=== PATIENT | female | born 1940 | race Caucasian/White ===

== ENCOUNTER 2019-01-10 22:46 | Emergency (ER) | payer MEDICARE ==
[~2019-01-10 22:46] MED LIST: ISOVUE-370 76%-LOCM 1 ML ONE
[2019-01-10 23:23] LABS: #Eosinphils 0.1 thou/uL (0.0-0.7); #Lymphocytes 1.5 thou/uL (1.20-3.40); #Monocytes 0.9 thou/uL (0.11-0.59); #Neutrophils 11.1 thou/uL (1.40-6.50); %Basophils 0.1 % (0.0-1.0); %Eosinophils 0.7 % (0.0-10.0); %Lymphocytes 11.2 % (21.0-51.0); %Monocytes 6.8 % (0.0-10.0); %Neutrophils 81.1 % (42.0-75.0); Hemoglobin 12.8 g/dL (12.0-16.0); Mean Corpuscular HGB CONC 34.3 g/dL (32.0-36.0); Mean Corpuscular Hemoglobin 30.9 pg (27.0-31.0); Mean Corpuscular Volume 90.2 fL (78.0-98.0); Mean Platelet Volume 7.7 fL (7.4-10.4); Platelet Count 286 thou/uL (130-400); RBC Distribution Width 11.6 % (11.5-14.5); Red Blood Cell (RBC) Count 4.14 mill/uL (4.20-5.40); White Blood Cell (WBC) Count 13.7 thou/uL (4.8-10.8)
[2019-01-10 23:44] LABS: ALT (SGPT) 30 U/L (8-55); AST (SGOT) 43 U/L (5-34); Albumin 4.3 g/dL (3.4-4.8); Alkaline Phosphatase 50 U/L (40-110); Anion Gap 14 mmol/L (10-20); BUN (Urea Nitrogen) 18 mg/dL (9.8-20.1); Bilirubin, Total 0.4 mg/dL (0.2-1.2); Calc. Creatinine Clearance 0 mL/min (70-130); Calcium 9.9 mg/dL (7.8-10.44); Carbon Dioxide 23 mmol/L (23-31); Chloride 105 mmol/L (98-107); Estimated GFR-MDRD 59; Globulin 3.2 g/dL (2.4-3.5); Glucose 113 mg/dL (83-110); Magnesium 1.7 mg/dL (1.6-2.6); Potassium 3.3 mmol/L (3.5-5.1); Protein, Total 7.5 g/dL (6.0-8.3); Sodium 139 mmol/L (136-145)
--- NOTE | 2019-01-11 07:39 | CT ---
PRELIMINARY REPORT/[facility]/EMERGENCY AFTER HOURS PROCEDURE: PROCEDURE INFORMATION: Exam: CT Abdomen And Pelvis With Contrast Exam date and time: 01/10/2019 11:57 PM Clinical history: 78 years old, female; Abdominal pain; Patient HX: Er 6. F78 with presented to the [facility] with a C/O diarrhea onset x4 days. PT reports chills. PT reports there is a little discomfort right now TECHNIQUE: Imaging protocol: Computed tomography of the abdomen and pelvis with intravenous contrast. COMPARISON: No relevant prior studies available. FINDINGS: Liver: Hepatic steatosis is noted. Gallbladder and bile ducts: Normal. No calcified stones. No ductal dilation. Pancreas: There is fatty atrophy of the pancreas. Spleen: Normal. No splenomegaly. Adrenals: Normal. No mass. Kidneys and ureters: Normal. No hydronephrosis. Stomach and bowel: There is diffuse diverticulosis without evidence of acute diverticulitis. No evidence of bowel traction. Appendix: No evidence of appendicitis. Intraperitoneal space: Unremarkable. No free air. No significant fluid collection. Vasculature: Unremarkable. No abdominal aortic aneurysm. Lymph nodes: Unremarkable. No enlarged lymph nodes. Bladder: Unremarkable as visualized. Reproductive: Unremarkable as visualized. Bones/joints: A scoliotic curvature is noted in the lumbar spine with superimposed degenerative disc disease and facet arthropathy causing bilateral neural foraminal narrowing and spinal canal stenosis. Soft tissues: Unremarkable. IMPRESSION: 1. Hepatic steatosis. No other evidence of acute abdominal pathology. 2. Lumbar spine degenerative changes. Thank you for allowing us to participate in the care of your patient. Dictated and Authenticated by: Mdaeleine Denis MD 01/11/2019 12:17 AM Central Time ([place] & [place]) FINAL REPORT CT ABDOMEN AND PELVIS WITH CONTRAST: History: Diarrhea. Comparison: None.. Findings: The findings and impression are concordant with the preliminary report. Impression: Aside from the mentioned findings in the preliminary report, there is mild hyperenhancement of the il eum with engorgement of the vasa recta ischemic seen with ileitis. Transcribed Date/Time: 01/11/2019 7:43 AM
== END 2019-01-11 00:55 | disposition home or self-care (01) ==
LOC: ERS 22:46
DX: R19.7 Diarrhea, unspecified (principal); E11.9 Type 2 diabetes mellitus without complications; E78.5 Hyperlipidemia, unspecified; E78.00 Pure hypercholesterolemia, unspecified; Z79.899 Other long term (current) drug therapy; Z79.4 Long term (current) use of insulin
CPT/HCPCS: 36415; 74177; 80053; 83735; 85025; 96360; Q9966

== ENCOUNTER 2019-11-06 10:30 | Outpatient (CLI) | payer MEDICARE ==
--- NOTE | 2019-11-06 11:54 | CT ---
CT ABDOMEN AND PELVIS WITH AND WITHOUT IV CONTRAST 11/06/2019 CLINICAL INFORMATION: Calculus of kidney. Hematuria. Constant UTI for months. COMPARISON: 01/10/2019 Technique: Multiple contiguous axial CT images are obtained through the abdomen and pelvis with and without IV c ontrast. Coronal reformatted images are provided. FINDINGS: Lower Chest: A stable 4 mm pulmonary nodule is seen in the lateral aspect left lower lobe. Visualized lung bases are otherwise clear. Vascular calcifications are seen in the coronary arteries and involving the thoracic aorta. Vessels: Vascular calcifications are present involving the abdominal aorta and iliac arteries. Abdomen: Portal vein:Patent Gallbladder: Within normal limits for CT imaging. Liver: Diminished attenuation suggesting diffuse fatty infiltration. Spleen: within normal limits. Pancreas: Atrophic. Adrenals: within normal limits. Kidneys: No renal or ureteral calculi are seen bilaterally. No enhancing renal mass is present. There is no hydronephrosis. Bowel: Evidence of colonic diverticulosis. Loops of small bowel are normal in caliber. Appendix: The appendix is visualized and normal in caliber. Peritoneum: No ascites or free air; no fluid collection. Mesentery and Retroperitoneum: No enlarged mesenteric or retroperitoneal lymph nodes. Abdominal Wall: Small fat-containing umbilical hernia. Pelvis: Reproductive Organs: There is a rounded hypodense lesion seen in the posterior aspect fundus of the u terus measuring 2.7 cm probably representing a uterine fibroid. This was present on prior exam in 2019 but less well appreciated. Bladder: Incompletely distended but otherwise demonstrates a normal CT appearance. Bones: Left convex scoliosis thoracolumbar spine with degenerative changes seen in the spine. Grade 1 anterolisthesis of L4 on L5 is present with slight retrolisthesis of L3 on L4. Bilateral hip osteoarthritis is present. IMPRESSION: 1. No renal or ureteral calculi are seen bilaterally, and there is no hydronephrosis. No enhancing re nal mass is seen. 2. Colonic diverticulosis. 3. Fatty infiltration of the liver. 4. Hypodense mass uterine fundus probably related to uterine fibroid. 5. Degenerative changes in the spine with evidence of scoliosis. Grade 1 anterolisthesis of L4 on L5 is present. 6. Stable subcentimeter too small to characterize pulmonary nodule left lower lobe. 7. CT abdomen and pelvis is stable compared to study in 2019.
[2019-11-06] MEDS ORDERED: Iopamidol-370 76% 500 ML 1 ML ONE (13:47)
== END 2019-11-06 10:31 | disposition home or self-care (01) ==
LOC: BICCT 10:30
PROVIDERS: ATTEND Urology
DX: N20.0 Calculus of kidney (principal); R31.29 Other microscopic hematuria; K76.0 Fatty (change of) liver, not elsewhere classified; K57.30 Diverticulosis of large intestine without perforation or abscess without bleeding; N85.9 Noninflammatory disorder of uterus, unspecified; M43.16 Spondylolisthesis, lumbar region; M41.9 Scoliosis, unspecified; R91.1 Solitary pulmonary nodule; M47.815 Spondylosis without myelopathy or radiculopathy, thoracolumbar region; Z87.440 Personal history of urinary (tract) infections
CPT/HCPCS: 74178; 82565; Q9967

== ENCOUNTER 2020-07-01 08:41 | Emergency (ER) | payer MEDICARE, OTHER ==
[2020-07-01 09:27] LABS: #Eosinphils 0.1 thou/uL (0.0-0.7); #Lymphocytes 1.6 thou/uL (1.20-3.40); #Monocytes 0.9 thou/uL (0.11-0.59); #Neutrophils 6.1 thou/uL (1.40-6.50); %Basophils 0.1 % (0.0-1.0); %Eosinophils 1.5 % (0.0-10.0); %Lymphocytes 18.5 % (21.0-51.0); %Neutrophils 69.9 % (42.0-75.0); Hemoglobin 13.1 g/dL (12.0-16.0); Mean Corpuscular HGB CONC 33.3 g/dL (32.0-36.0); Mean Corpuscular Hemoglobin 30.3 pg (27.0-31.0); Mean Platelet Volume 8.3 fL (7.4-10.4); Platelet Count 264 thou/uL (130-400); RBC Distribution Width 11.9 % (11.5-14.5); Red Blood Cell (RBC) Count 4.33 mill/uL (4.20-5.40); White Blood Cell (WBC) Count 8.8 thou/uL (4.8-10.8)
[2020-07-01 09:50] LABS: ALT (SGPT) 22 U/L (8-55); AST (SGOT) 21 U/L (5-34); Albumin 3.8 g/dL (3.4-4.8); Alkaline Phosphatase 67 U/L (40-110); Anion Gap 15 mmol/L (10-20); BUN (Urea Nitrogen) 14 mg/dL (9.8-20.1); Bilirubin, Total 0.5 mg/dL (0.2-1.2); Calc. Creatinine Clearance 0 mL/min (70-130); Calcium 10.3 mg/dL (7.8-10.44); Carbon Dioxide 22 mmol/L (23-31); Chloride 104 mmol/L (98-107); Globulin 3.2 g/dL (2.4-3.5); Glucose 121 mg/dL (83-110); Potassium 3.5 mmol/L (3.5-5.1); Sodium 137 mmol/L (136-145)
[2020-07-01 09:57] LABS: Bacteria/HPF 4+ HPF (None Seen); Bilirubin Negative (Negative); Blood, Urine Negative (Negative); Clarity Turbid (Clear); Glucose, Urine (Dipstick) Normal (Negative); Ketone, Urine Negative (Negative); Leukocyte 500 Leu/uL (Negative); Nitrite Negative (Negative); Protein, Urine (Dipstick) Negative (Neg-Trace); Specific Gravity, Urine 1.004 (1.002-1.036); Squamous Epithelial 0-3 HPF (0-3); Urobilinogen Normal mg/dL (Less than 2); WBC/HPF Greater than 50 HPF (0-3); Yeast-Budding 2+ HPF (None Seen)
[2020-07-01] MEDS ORDERED: Meclizine HCl 25 MG TAB ONE (10:16)
== END 2020-07-01 11:29 | disposition home or self-care (01) ==
LOC: ERS 08:41
DX: N39.0 Urinary tract infection, site not specified (principal); R42 Dizziness and giddiness; E11.9 Type 2 diabetes mellitus without complications; E78.5 Hyperlipidemia, unspecified; E78.00 Pure hypercholesterolemia, unspecified; Z79.4 Long term (current) use of insulin; Z79.899 Other long term (current) drug therapy; R29.700 NIHSS score 0
CPT/HCPCS: 36415; 36416; 70450; 70496; 70498; 80053; 81003; 81015; 84484; 85025; 93005

== ENCOUNTER 2020-09-12 18:26 | Emergency (ER) | payer MEDICARE, OTHER ==
[2020-09-12 19:35] LABS: #Eosinphils 0.1 thou/uL (0.0-0.7); #Lymphocytes 1.8 thou/uL (1.20-3.40); #Monocytes 0.7 thou/uL (0.11-0.59); #Neutrophils 6.7 thou/uL (1.40-6.50); %Basophils 0.3 % (0.0-1.0); %Eosinophils 1.2 % (0.0-10.0); %Lymphocytes 19.6 % (21.0-51.0); %Monocytes 7.8 % (0.0-10.0); %Neutrophils 71.1 % (42.0-75.0); Hemoglobin 13.7 g/dL (12.0-16.0); Mean Corpuscular HGB CONC 32.4 g/dL (32.0-36.0); Mean Corpuscular Hemoglobin 29.9 pg (27.0-31.0); Mean Corpuscular Volume 92.4 fL (78.0-98.0); Mean Platelet Volume 8.5 fL (7.4-10.4); Platelet Count 241 thou/uL (130-400); Red Blood Cell (RBC) Count 4.57 mill/uL (4.20-5.40); White Blood Cell (WBC) Count 9.4 thou/uL (4.8-10.8)
[2020-09-12 20:03] LABS: ALT (SGPT) 21 U/L (8-55); AST (SGOT) 21 U/L (5-34); Albumin 4.1 g/dL (3.4-4.8); Alkaline Phosphatase 82 U/L (40-110); Anion Gap 12 mmol/L (10-20); BUN (Urea Nitrogen) 19 mg/dL (9.8-20.1); Bilirubin, Total 0.5 mg/dL (0.2-1.2); Calc. Creatinine Clearance 0 mL/min (70-130); Calcium 9.7 mg/dL (7.8-10.44); Carbon Dioxide 26 mmol/L (23-31); Chloride 105 mmol/L (98-107); Globulin 3.5 g/dL (2.4-3.5); Glucose 139 mg/dL (83-110); Potassium 3.8 mmol/L (3.5-5.1); Protein, Total 7.6 g/dL (5.8-8.1); Sodium 139 mmol/L (136-145)
== END 2020-09-12 22:35 | disposition home or self-care (01) ==
LOC: ERS 18:26
DX: I10 Essential (primary) hypertension (principal); E11.9 Type 2 diabetes mellitus without complications; E78.5 Hyperlipidemia, unspecified; E78.00 Pure hypercholesterolemia, unspecified; Z79.4 Long term (current) use of insulin
CPT/HCPCS: 36415; 71046; 80053; 84484; 85025; 93005

== ENCOUNTER 2021-03-24 14:39 | Outpatient (CLI) | payer MEDICARE | END 2021-03-24 14:40 | disposition home or self-care (01) | LOC: BICMAMMO 14:39 | PROVIDERS: ATTEND Internal Medicine | DX: Z12.31 Encounter for screening mammogram for malignant neoplasm of breast (principal) | CPT/HCPCS: 77063; 77067 ==

== ENCOUNTER 2023-08-26 13:11 | Outpatient (CLI) | payer MEDICARE | END 2023-08-26 13:12 | disposition home or self-care (01) | LOC: BICMAMMO 13:11 | PROVIDERS: ATTEND Internal Medicine Endocrinology, Diabetes & Metabolism | DX: Z12.31 Encounter for screening mammogram for malignant neoplasm of breast (principal); M81.0 Age-related osteoporosis without current pathological fracture; N63.10 Unspecified lump in the right breast, unspecified quadrant; M85.851 Other specified disorders of bone density and structure, right thigh; M85.852 Other specified disorders of bone density and structure, left thigh | CPT/HCPCS: 77063; 77067; 77080 ==

== ENCOUNTER 2023-08-30 13:36 | Outpatient (CLI) | payer MEDICARE | END 2023-08-30 13:37 | disposition home or self-care (01) | LOC: BICULT 13:36 | PROVIDERS: ATTEND Internal Medicine Endocrinology, Diabetes & Metabolism | DX: N63.14 Unspecified lump in the right breast, lower inner quadrant (principal) ==

== ENCOUNTER → 2023-08-31 | Day surgery (SDC) | payer MEDICARE | LOC: BICULT 12:29 | PROVIDERS: ATTEND Internal Medicine | PROC: 0H9T3ZX Drainage of Right Breast, Percutaneous Approach, Diagnostic (ICD-10-PCS; principal; 2023-08-31) | DX: N60.01 Solitary cyst of right breast (principal) | CPT/HCPCS: 76942; 88173; 88305 ==

== ENCOUNTER 2024-12-06 14:34 | Outpatient (CLI) | payer MEDICARE | END 2024-12-06 14:35 | disposition home or self-care (01) | LOC: BICMAMMO 14:34 | PROVIDERS: ATTEND Internal Medicine | DX: Z12.31 Encounter for screening mammogram for malignant neoplasm of breast (principal) | CPT/HCPCS: 77063; 77067 ==